=== PATIENT | female | born 2005 | race Caucasian/White ===

== ENCOUNTER 2024-12-29 19:09 | Emergency (ER) | payer MEDICAID ==
[~2024-12-29] VITALS: Ht 175.3 cm; Wt 68.7 kg
[2024-12-29 19:19] VITALS: BP 119/89; PULSE 79; RESP 16; O2SAT 100
[2024-12-29 20:05] VITALS: TEMP 97.5
== END 2024-12-29 20:05 | disposition left against medical advice (07) ==
LOC: ER 19:09
DX: L02.31 Cutaneous abscess of buttock (principal); Z53.21 Procedure and treatment not carried out due to patient leaving prior to being seen by health care provider

== ENCOUNTER 2025-03-11 05:16 | Emergency (ER) | payer MEDICAID ==
[~2025-03-11] VITALS: Ht 170.2 cm; Wt 62.2 kg
[2025-03-11 05:21] VITALS: BP 107/71; PULSE 106; RESP 16; O2SAT 98
[2025-03-11] MEDS ORDERED: SULF1TAB49 PO (05:23)
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
[2025-03-11] MEDS: TETanus/Pertussis (Acell)/Diphther VAC/PF (Tdap-Adult) 0.5ml syringe IMVAC ONE (05:48)
[2025-03-11] MEDS: CefTRIAXone 1000mg IM Kit (w/lidocaine diluent) IM ONE (05:48)
[2025-03-11] MEDS: LIDOcaine 1% 30ml preserv. free vial SQ STA (05:49)
== END 2025-03-11 05:58 ==
LOC: ER 05:17
DX: S61.214A Laceration without foreign body of right ring finger without damage to nail, initial encounter (principal); Z02.89 Encounter for other administrative examinations; F10.129 Alcohol abuse with intoxication, unspecified; F17.200 Nicotine dependence, unspecified, uncomplicated; G89.11 Acute pain due to trauma; Y08.89XA Assault by other specified means, initial encounter; Y93.89 Activity, other specified; Y92.89 Other specified places as the place of occurrence of the external cause; Y99.8 Other external cause status; Y90.9 Presence of alcohol in blood, level not specified
CPT/HCPCS: 12001; 90471; 90715; 96372; 99284; J0696